=== PATIENT | female | born 1945 | race Hispanic/Latino ===

== ENCOUNTER → 2018-10-26 | Outpatient (CLI) | payer OTHER, MEDICARE ==
[~2018-10-26] MED LIST: ADAL40KI SQ; CALC-483 PO; CHOL100018 PO; DULO60CA63 PO; ESOM40CA PO; GABA-318 PO; INSLAN SQ; INSU100I15 SQ; LOSA100T20 PO; METF-444 PO; METO50TA18 PO; PRED10TA3 PO; ROSU10TA PO
== END | disposition home or self-care (01) ==
LOC: OIH 08:32
PROVIDERS: ATTEND Internal Medicine
DX: M13.842 Other specified arthritis, left hand (principal); M13.841 Other specified arthritis, right hand; M51.37 Other intervertebral disc degeneration, lumbosacral region; M47.896 Other spondylosis, lumbar region; M20.11 Hallux valgus (acquired), right foot; M20.12 Hallux valgus (acquired), left foot; R10.2 Pelvic and perineal pain
CPT/HCPCS: 72100; 72200; 73120; 73620

== ENCOUNTER → 2019-07-26 | Outpatient (CLI) | payer OTHER, MEDICARE ==
[~2019-07-26] MED LIST changes: -DULO60CA63 PO; +DULO60CA64 PO; -GABA-318 PO; +GABA600T10 PO; -LOSA100T20 PO; +LOSA100T58 PO; -ROSU10TA PO; +ROSU10TA22 PO
== END | disposition home or self-care (01) ==
LOC: RAH 09:05
PROVIDERS: ATTEND Dermatology
DX: R76.11 Nonspecific reaction to tuberculin skin test without active tuberculosis (principal)
CPT/HCPCS: 71046

== ENCOUNTER → 2019-07-30 | Outpatient (CLI) | payer OTHER, MEDICARE | END | disposition home or self-care (01) | LOC: OIH 09:51 | PROVIDERS: ATTEND Internal Medicine | DX: M50.31 Other cervical disc degeneration, high cervical region (principal); M48.02 Spinal stenosis, cervical region; M23.92 Unspecified internal derangement of left knee | CPT/HCPCS: 72040 ==

== ENCOUNTER 2020-04-26 22:21 | Inpatient (IN) | payer OTHER, MEDICARE ==
[~2020-04-26] VITALS: Ht 160 cm; Wt 100.6 kg
[2020-04-26 23:16] LABS: BASOPHILS % (AUTO) 0.2 % (0.0-5.0); EOSINOPHILS % (AUTO) 2.8 % (0.0-8.0); HEMATOCRIT 39.7 % (36-48); LYMPHOCYTES % (AUTO) 26.1 % (21.0-51.0); MEAN CORPUSCULAR HEMOGLOBIN 28.5 pg (27.0-33.0); MEAN CORPUSCULAR HGB CONC 32.2 g/dL (32.0-36.0); MEAN CORPUSCULAR VOLUME 88.4 fL (79-99); MONOCYTES % (AUTO) 5.3 % (3.0-13.0); NEUTROPHILS % (AUTO) 65.3 % (40.0-77.0); PLATELET COUNT (AUTO) 171 K/uL (130-400); RED BLOOD CELL COUNT(AUTO) 4.49 MIL/uL (4.00-5.50); RED CELL DISTRIBUTION WIDTH 12.9 % (11.0-15.5); WHITE BLOOD COUNT (AUTO) 6.2 K/uL (4.8-10.8)
[2020-04-26 23:27] LABS: INR 0.95 (0.85-1.15); PARTIAL THROMBOPLASTIN TIME 23.7 SEC (26.3-35.5); PROTHROMBIN TIME 10.3 SEC (9.6-11.6)
[2020-04-26 23:40] LABS: APPEARANCE,URINE Turbid (CLEAR); BILIRUBIN,URINE Small (NEGATIVE); COLOR,URINE Dark Yellow (YELLOW); GLUCOSE, URINE (UA) Negative (NEGATIVE); KETONES,URINE Trace mg/dL (NEGATIVE); LEUKOCYTE ESTERASE ,URINE Trace (NEGATIVE); NITRATE,URINE Negative (NEGATIVE); OCCULT BLOOD,URINE Negative (NEGATIVE); PH,URINE 5.5 (5.0-8.0); PROTEIN,URINE POS 2+ mg/dL (NEGATIVE)
[2020-04-26] MEDS ORDERED: ACETAMINOPHEN EXTRA STRENGTH 500 MG TABLET ONE (23:41)
[2020-04-26 23:44] LABS: ALBUMIN 3.2 g/dL (3.5-5.0); BILIRUBIN,TOTAL 0.6 mg/dL (0.2-1.0); CREATININE 0.7 mg/dL (0.5-1.5); CRP QUANTITATIVE 44.8 mg/L (0.00-9.0); TOTAL PROTEIN, SERUM 8.2 g/dL (6.0-8.3)
[2020-04-26 23:46] LABS: POTASSIUM 4.2 mmol/L (3.5-5.1)
[2020-04-26 23:51] LABS: BACTERIA,URINE Many /HPF (None Seen); RBC,URINE 0-1 /HPF (0-1); WBC,URINE 0-1 /HPF (0-1)
[2020-04-26 23:55] LABS: B-TYPE NATRIURETIC PEPTIDE 198 pg/mL (0-100)
[2020-04-27] MEDS ORDERED: IOHEXOL-350 75 ML VIAL IV ONE (00:45)
[2020-04-27] MEDS ORDERED: AZITHROMYCIN 500MG+NS 250ML 250 ML IV ONE (02:28)
[2020-04-27] MEDS ORDERED: CEFTRIAXONE SODIUM 1 GM ONE (02:29)
[2020-04-27] MEDS ORDERED: ONDANSETRON HCL 4 MG/2 ML VIAL IV PRN (03:00)
[2020-04-27] MEDS ORDERED: ACETAMINOPHEN 325 MG TAB PO PRN ×2 (03:00)
[2020-04-27] MEDS ORDERED: LACTULOSE 20 GM/30 ML UDCUP PO PRN (03:00)
[2020-04-27] MEDS ORDERED: HYDRALAZINE HCL 20 MG/ML VIAL IV PRN (03:00)
[2020-04-27 04:39] LABS: BASOPHILS % (AUTO) 0.2 % (0.0-5.0); EOSINOPHILS % (AUTO) 0.2 % (0.0-8.0); HEMATOCRIT 36.6 % (36-48); LYMPHOCYTES % (AUTO) 34.4 % (21.0-51.0); MEAN CORPUSCULAR HEMOGLOBIN 29.5 pg (27.0-33.0); MEAN CORPUSCULAR HGB CONC 33.1 g/dL (32.0-36.0); MEAN CORPUSCULAR VOLUME 89.3 fL (79-99); MONOCYTES % (AUTO) 6.6 % (3.0-13.0); NEUTROPHILS % (AUTO) 58.4 % (40.0-77.0); PLATELET COUNT (AUTO) 173 K/uL (130-400); RED CELL DISTRIBUTION WIDTH 12.8 % (11.0-15.5); WHITE BLOOD COUNT (AUTO) 5.3 K/uL (4.8-10.8)
[2020-04-27 04:56] LABS: CREATININE 0.7 mg/dL (0.5-1.5); POTASSIUM 3.1 mmol/L (3.5-5.1)
[2020-04-27] MEDS ORDERED: ALBUTEROL INHALER 90MCG/INH IH ONE (05:12)
[2020-04-27] MEDS ORDERED: GLUCAGON 1MG KIT 1 MG ML IM PRN (05:45)
[2020-04-27] MEDS ORDERED: DEXTROSE 50%-WATER 50 ML DISP.SYRIN IV PRN (05:45)
[2020-04-27] MEDS: ALBUTEROL INHALER 90MCG/INH IH SCH ×5 (06:00→22:04)
[2020-04-27] MEDS: INSULIN HUMULIN R 100 UNIT/ML 3ML SQ SCH ×4 (07:30→21:54)
[2020-04-27] MEDS ORDERED: ENOXAPARIN SODIUM 40 MG/0.4 ML SYRINGE SQ ONE (07:56)
[2020-04-27] MEDS ORDERED: FAMOTIDINE 20MG TAB 20 MG TAB ONE (07:56)
[2020-04-27] MEDS: METHYLPREDNISOLONE SOD SUCC 40MG/ML 1ML IVP SCH ×2 (08:30→19:57)
[2020-04-27] MEDS: ENOXAPARIN SODIUM 40 MG/0.4 ML SYRINGE SQ SCH (09:00)
[2020-04-27] MEDS: FAMOTIDINE 20MG TAB 20 MG TAB PO SCH ×2 (09:00→19:57)
[2020-04-27] MEDS ORDERED: METHYLPREDNISOLONE SOD SUCC 40MG/ML 1ML ONE (09:50)
[2020-04-27 12:37] LABS: HEMOGLOBIN A1C 8.9 % (4.0-6.0)
[2020-04-27 17:19] VITALS: BP 136/64
[2020-04-27] MEDS ORDERED: POTASSIUM CHLORIDE 20MEQ/100ML 100 ML IV PRN (20:00)
[2020-04-27] MEDS ORDERED: LIDOCAINE HCL-MPF 1% 2ML VIAL IV PRN (20:00)
[2020-04-27] MEDS ORDERED: POTASSIUM CHLORIDE 10% ELIXIR 20 MEQ/15 ML UDCUP PO PRN (20:00)
[2020-04-27 20:20] VITALS: BP 129/52
[2020-04-27] MEDS: POTASSIUM CHLORIDE 20 MEQ ERTAB PO PRN ×2 (22:09→23:52)
[2020-04-28] VITALS (7 sets, daily range): BP systolic 140–155; BP diastolic 56–74
[2020-04-28] MEDS: ALBUTEROL INHALER 90MCG/INH IH SCH ×5 (02:04→17:57)
[2020-04-28] MEDS: AZITHROMYCIN 500MG+NS 250ML 250 ML IV SCH (02:42)
[2020-04-28] MEDS: CEFTRIAXONE SODIUM 1 GM IV SCH (02:42)
[2020-04-28] MEDS ORDERED: MONT10TA26 PO (03:29)
[2020-04-28] MEDS: INSULIN HUMULIN R 100 UNIT/ML 3ML SQ SCH ×4 (05:54→21:03)
[2020-04-28 06:56] LABS: HEMATOCRIT 37.7 % (36-48); LYMPHOCYTES % (AUTO) 27.9 % (21.0-51.0); MEAN CORPUSCULAR HEMOGLOBIN 28.5 pg (27.0-33.0); MEAN CORPUSCULAR HGB CONC 31.8 g/dL (32.0-36.0); MEAN CORPUSCULAR VOLUME 89.5 fL (79-99); MONOCYTES % (AUTO) 6.3 % (3.0-13.0); NEUTROPHILS % (AUTO) 65.6 % (40.0-77.0); PLATELET COUNT (AUTO) 219 K/uL (130-400); RED BLOOD CELL COUNT(AUTO) 4.21 MIL/uL (4.00-5.50); WHITE BLOOD COUNT (AUTO) 4.3 K/uL (4.8-10.8)
[2020-04-28 07:13] LABS: CREATININE 0.8 mg/dL (0.5-1.5); POTASSIUM 3.8 mmol/L (3.5-5.1)
[2020-04-28] MEDS: FAMOTIDINE 20MG TAB 20 MG TAB PO SCH ×2 (09:40→21:00)
[2020-04-28] MEDS: METHYLPREDNISOLONE SOD SUCC 40MG/ML 1ML IVP SCH ×2 (09:40→21:00)
[2020-04-28] MEDS: ENOXAPARIN SODIUM 40 MG/0.4 ML SYRINGE SQ SCH (09:41)
[2020-04-28 10:08] LABS: CRP QUANTITATIVE 25.7 mg/L (0.00-9.0)
--- NOTE | 2020-04-28 12:30 | NUR ---
DR ALIRIO AMEZQUITA ROUNDED ON PATIENT NO NEW ORDERS RECEIVED
--- NOTE | 2020-04-28 16:03 | NUR ---
DC Plan Patient in COVID unit and is Armenian speaking. CM called radha Bhatt (ph: [phone]). Per Tracie, patient lives with spouse and independently performs ADLs. Denies any HH or DME. States patient goes to [facility] in [place] and also has a provider but cannot recall the number of provider hours. Denies falls within the last 6 months. DCP is back home with spouse and provider services. CD Addendum: 04/28/20 at 1605 by TINO DUVAL CM Amended: Links added.
--- NOTE | 2020-04-28 19:10 | NUR ---
RECEIVED REPORT FROM BROOKS PARRISH. PT IS LAYING SUPINE WITH EYES OPEN. NO DISTRESS NOTED. NO SOB. PT ON O2 VIA NC 2L
[2020-04-28] MEDS ORDERED: REMDESIVIR (INVESTIGATIONAL) 100 MG in SODIUM CHLORIDE 0.9% 250 ML IV SCH (20:30)
[2020-04-29] MEDS: AZITHROMYCIN 500MG+NS 250ML 250 ML IV SCH (03:07)
[2020-04-29] MEDS: CEFTRIAXONE SODIUM 1 GM IV SCH (03:07)
[2020-04-29 03:28] VITALS: BP 139/66
[2020-04-29 04:45] LABS: BASOPHILS % (AUTO) 0.1 % (0.0-5.0); EOSINOPHILS % (AUTO) 1.9 % (0.0-8.0); HEMATOCRIT 37.2 % (36-48); LYMPHOCYTES % (AUTO) 15.3 % (21.0-51.0); MEAN CORPUSCULAR HEMOGLOBIN 29.4 pg (27.0-33.0); MEAN CORPUSCULAR HGB CONC 33.1 g/dL (32.0-36.0); MONOCYTES % (AUTO) 3.8 % (3.0-13.0); NEUTROPHILS % (AUTO) 78.6 % (40.0-77.0); PLATELET COUNT (AUTO) 231 K/uL (130-400); RED BLOOD CELL COUNT(AUTO) 4.18 MIL/uL (4.00-5.50); RED CELL DISTRIBUTION WIDTH 12.8 % (11.0-15.5); WHITE BLOOD COUNT (AUTO) 8.6 K/uL (4.8-10.8)
[2020-04-29 06:18] LABS: CREATININE 0.8 mg/dL (0.5-1.5); CRP QUANTITATIVE 15.9 mg/L (0.00-9.0); POTASSIUM 4.3 mmol/L (3.5-5.1)
[2020-04-29] MEDS: INSULIN HUMULIN R 100 UNIT/ML 3ML SQ SCH ×4 (06:29→21:26)
--- NOTE | 2020-04-29 06:50 | NUR ---
NEW IV STARTED ON LAC, 20G. PATENT AND INTACT.
[2020-04-29] MEDS: MORPHINE SULFATE 2 MG/ML 1ML SYG IV PRN (07:09)
[2020-04-29 08:50] VITALS: BP 143/64
[2020-04-29] MEDS: FAMOTIDINE 20MG TAB 20 MG TAB PO SCH ×3 (09:20→21:00)
[2020-04-29] MEDS: ENOXAPARIN SODIUM 40 MG/0.4 ML SYRINGE SQ SCH (10:32)
[2020-04-29] MEDS: ALBUTEROL INHALER 90MCG/INH IH SCH ×3 (10:33→18:37)
[2020-04-29] MEDS: METHYLPREDNISOLONE SOD SUCC 40MG/ML 1ML IVP SCH (10:36)
--- NOTE | 2020-04-29 12:00 | NUR ---
Possible D/c tomorrow if stable
[2020-04-29 12:38] VITALS: BP 147/72
[2020-04-29 15:33] VITALS: BP 150/64
--- NOTE | 2020-04-29 19:30 | NUR ---
REPORT RECEIVED FROM BROOKS SINGER. PT LAYING IN BED EYES OPEN ON ROOM AIR. NO DISTRESS NOTED.
[2020-04-29 19:52] VITALS: BP 152/68
[2020-04-29 23:22] VITALS: BP 152/72
[2020-04-30 03:05] VITALS: BP 184/74
[2020-04-30] MEDS: CEFTRIAXONE SODIUM 1 GM IV SCH (03:12)
--- NOTE | 2020-04-30 03:13 | NUR ---
BP BLOOD PRESSURE 184/74 APRESOLINE 10MG/0.5ML GIVEN VIA IV
[2020-04-30] MEDS: AZITHROMYCIN 500MG+NS 250ML 250 ML IV SCH (04:08)
--- NOTE | 2020-04-30 04:20 | NUR ---
BP BLOOD PRESSURE 134/64
[2020-04-30] MEDS: MORPHINE SULFATE 2 MG/ML 1ML SYG IV PRN (04:23)
--- NOTE | 2020-04-30 04:23 | NUR ---
MORPHINE GIVEN FOR GENERALIZED PAIN, PT C/O LEGS HURTING.
--- NOTE | 2020-04-30 04:30 | NUR ---
PT C/O OF PAIN ON IV SITE. NO REDNESS, NO SWELLING, NO SIGNS OF INFILTRATION. CALLED BROOKS SHEETS TO ASSESS WELL.
[2020-04-30 04:33] VITALS: BP 134/64
--- NOTE | 2020-04-30 04:40 | NUR ---
PT C/O AGAIN OF IV SITE. WILL DISCONTINUE IV AND START A NEW IV.
--- NOTE | 2020-04-30 04:55 | NUR ---
NEW IV STARTED BY BROOKS SHEETS. 22G LATERAL RAC. PT STATED WHERE SHE WANTED IV BUT IT WAS EXPLAINED TO PT IV NEEDS TO BE STARTED WHERE THERE IS VIABLE VEIN ACCESS. NEW IV IS INTACT AND PATENT, ANTIBIOTICS CONTINUED.
[2020-04-30] MEDS: INSULIN HUMULIN R 100 UNIT/ML 3ML SQ SCH ×4 (05:59→20:30)
--- NOTE | 2020-04-30 06:53 | NUR ---
REPORT GIVEN TO BROOKS PANG. PT LAYING IN BED. NO DISTRESS NOTED.
[2020-04-30] MEDS: FAMOTIDINE 20MG TAB 20 MG TAB PO SCH ×4 (06:59→20:37)
[2020-04-30] MEDS: ENOXAPARIN SODIUM 40 MG/0.4 ML SYRINGE SQ SCH (07:59)
--- NOTE | 2020-04-30 08:00 | NUR ---
ASSESSMENT PT IS AAOX3 DENIES CP DENIES SOB DENIES NV AT THIS TIME. CURRENTLY ON ROOM AIR, SITTING UPRIGHT IN BED. NO VISIBLE SIGNS OF DISTRESS NOTED. CALL LIGHT WITHIN REACH.
[2020-04-30 08:32] VITALS: BP 145/58
[2020-04-30] MEDS: METOPROLOL TARTRATE 50 MG TAB PO SCH ×2 (09:29→20:21)
[2020-04-30] MEDS: LOSARTAN 100 MG TABLET PO SCH (09:29)
[2020-04-30 10:06] LABS: CRP QUANTITATIVE 21.8 mg/L (0.00-9.0)
--- NOTE | 2020-04-30 11:28 | NUR ---
DR AMEZQUITA / CATRINA SHUTTLE VENEERING SUPERVISOR ROUNDED ORDERS RECEIVED
[2020-04-30 12:26] VITALS: BP 144/76
[2020-04-30 16:38] VITALS: BP 140/67
--- NOTE | 2020-04-30 18:00 | NUR ---
STATUS RESTING IN BED, SITTING UPRIGHT IN BED. PT EXHIBITS NO VISIBLE SIGNS OF DISTRESS, CALL LIGHT WITHIN REACH.
--- NOTE | 2020-04-30 18:15 | NUR ---
DC Plan Met with patient and informed of possible dc home tomorrow, but will need O2. Patient has no preference in company, just wants one that's in-network. Provided CM with verbal consent for [facility] and [employer] to set up O2. Unable to recall street address. CM called daughter Tracie who provided address. CM updated family on possible discharge home tomorrow. Referral faxed to [employer] at [phone] with fax confirmation received. CD Addendum: 04/30/20 at 1817 by TINO DUVAL CM Amended: Links added.
[2020-04-30] MEDS: DEXAMETHASONE 4 MG TAB PO SCH (20:19)
[2020-04-30 20:40] VITALS: BP 157/65
[2020-05-01] VITALS: BP 149/52
[2020-05-01] MEDS: AZITHROMYCIN 500MG+NS 250ML 250 ML IV SCH (03:10)
[2020-05-01] MEDS: CEFTRIAXONE SODIUM 1 GM IV SCH (03:10)
[2020-05-01 04:00] VITALS: BP 139/66
[2020-05-01] MEDS: ALBUTEROL INHALER 90MCG/INH IH SCH ×5 (06:00→21:08)
[2020-05-01] MEDS: INSULIN HUMULIN R 100 UNIT/ML 3ML SQ SCH ×4 (06:27→21:10)
[2020-05-01 06:51] LABS: LACTATE DEHYDROGENASE 244 U/L (81-234)
[2020-05-01] MEDS: FAMOTIDINE 20MG TAB 20 MG TAB PO SCH ×4 (07:02→20:17)
--- NOTE | 2020-05-01 08:00 | NUR ---
ASSESSMENT PT IS AAOX3 DENIES CP DENIES SOB WHILE AT REST. DENIES NV. CURRENTLY ON O2 VIA NC. BREATHING PATTERN IS EVEN AND UNLABORED. CALL LIGHT WITHIN REACH.
[2020-05-01] MEDS: DEXAMETHASONE 4 MG TAB PO SCH (08:03)
[2020-05-01] MEDS: ENOXAPARIN SODIUM 40 MG/0.4 ML SYRINGE SQ SCH (08:03)
[2020-05-01] MEDS: METOPROLOL TARTRATE 50 MG TAB PO SCH ×2 (08:04→20:17)
[2020-05-01] MEDS: LOSARTAN 100 MG TABLET PO SCH (08:04)
[2020-05-01 08:43] VITALS: BP 148/79
[2020-05-01] MEDS: METHYLPREDNISOLONE SOD SUCC 40MG/ML 1ML IVP SCH ×2 (09:15→15:31)
--- NOTE | 2020-05-01 12:00 | NUR ---
MD ROUNDS DR AMEZQUITA / MARGARITO ZAMAN HIDE TANNER / FAHEEM ROUNDED. ORDERS RECEIVED.
[2020-05-01 12:08] VITALS: BP 123/64
[2020-05-01 16:30] VITALS: BP 142/66
--- NOTE | 2020-05-01 16:40 | NUR ---
STATUS SITTING UPRIGHT IN CHAIR. NO COMPLAINTS. CALL LIGHT WITHIN REACH.
[2020-05-01 20:36] VITALS: BP 142/73
[2020-05-01] MEDS: INSULIN GLARGINE 100 UNITS/ML 10 ML VIAL SQ SCH (21:11)
[2020-05-02] VITALS (8 sets, daily range): BP systolic 95–159; BP diastolic 49–77
[2020-05-02] MEDS: MORPHINE SULFATE 2 MG/ML 1ML SYG IV PRN ×2 (01:15→03:14)
[2020-05-02] MEDS: METHYLPREDNISOLONE SOD SUCC 40MG/ML 1ML IVP SCH ×3 (01:15→12:33)
[2020-05-02] MEDS: CEFTRIAXONE SODIUM 1 GM IV SCH (01:25)
[2020-05-02] MEDS: ALBUTEROL INHALER 90MCG/INH IH SCH ×6 (01:25→21:23)
[2020-05-02] MEDS: AZITHROMYCIN 500MG+NS 250ML 250 ML IV SCH (01:25)
[2020-05-02] MEDS ORDERED: HYDROMORPHONE HCL 2 MG/ML VIAL ONE ×3 (02:40→04:12)
[2020-05-02] MEDS ORDERED: HYDROMORPHONE HCL 2 MG/ML VIAL IVP ONE (02:45)
[2020-05-02] MEDS ORDERED: HYDROMORPHONE HCL 2 MG/ML VIAL IVP PRN (04:00)
[2020-05-02 05:21] LABS: BASOPHILS % (AUTO) 0.1 % (0.0-5.0); HEMATOCRIT 35.2 % (36-48); LYMPHOCYTES % (AUTO) 12.1 % (21.0-51.0); MEAN CORPUSCULAR HEMOGLOBIN 28.7 pg (27.0-33.0); MEAN CORPUSCULAR HGB CONC 32.7 g/dL (32.0-36.0); MEAN CORPUSCULAR VOLUME 87.8 fL (79-99); MONOCYTES % (AUTO) 3.7 % (3.0-13.0); NEUTROPHILS % (AUTO) 82.7 % (40.0-77.0); PLATELET COUNT (AUTO) 261 K/uL (130-400); RED BLOOD CELL COUNT(AUTO) 4.01 MIL/uL (4.00-5.50); RED CELL DISTRIBUTION WIDTH 12.7 % (11.0-15.5); WHITE BLOOD COUNT (AUTO) 8.3 K/uL (4.8-10.8)
[2020-05-02] MEDS: INSULIN HUMULIN R 100 UNIT/ML 3ML SQ SCH ×4 (05:55→21:30)
[2020-05-02 05:56] LABS: CREATININE 0.8 mg/dL (0.5-1.5); POTASSIUM 3.5 mmol/L (3.5-5.1)
[2020-05-02] MEDS: FAMOTIDINE 20MG TAB 20 MG TAB PO SCH ×4 (08:18→21:27)
[2020-05-02] MEDS: METOPROLOL TARTRATE 50 MG TAB PO SCH ×2 (09:36→21:26)
[2020-05-02] MEDS: LOSARTAN 100 MG TABLET PO SCH (09:36)
[2020-05-02] MEDS: ENOXAPARIN SODIUM 40 MG/0.4 ML SYRINGE SQ SCH (09:37)
--- NOTE | 2020-05-02 14:30 | NUR ---
Relayed pt's c/o abd discomfort and continued lack of taste or smell to Dr. Alex, also informed of daughter's request for abd ultrasound due to this. Dr. Alex stated these are expected symptoms of pt's dx (Covid 19) and at this time no further imaging studies are warranted; sense of taste and smell will return slowly, perhaps over weeks.
--- NOTE | 2020-05-02 17:07 | NUR ---
cm note spoke to miguel ángel with [facility] [phone] and states they have delivered the oxygen portable and concentrator to pt's home, but they are still pending approval. pt can be dc over the weekend. states will need updated o2 sat levels prior to dc. updated nargis primary nurse.
[2020-05-02] MEDS: INSULIN GLARGINE 100 UNITS/ML 10 ML VIAL SQ SCH (21:30)
[2020-05-03] MEDS: CEFTRIAXONE SODIUM 1 GM IV SCH (02:51)
[2020-05-03] MEDS: AZITHROMYCIN 500MG+NS 250ML 250 ML IV SCH (02:51)
[2020-05-03] MEDS: ALBUTEROL INHALER 90MCG/INH IH SCH ×3 (02:53→11:21)
[2020-05-03 03:51] VITALS: BP 134/73
[2020-05-03 05:38] LABS: CRP QUANTITATIVE 28.8 mg/L (0.00-9.0)
[2020-05-03] MEDS: INSULIN HUMULIN R 100 UNIT/ML 3ML SQ SCH ×2 (06:40→12:26)
--- NOTE | 2020-05-03 06:49 | NUR ---
pt glucose is 61, she is stable no complains of being in any distress. Offered a glass of orange juice, re checked is 75. will monitor
--- NOTE | 2020-05-03 08:00 | NUR ---
AM ASSESSMENT PT LAYING IN BED, HOB ELEVATED 30 DEGREES, RESTING. A/O X 3. SOB ON EXERTION. NO DISTRESS NOTED. O2 NC @ 2L W/O2 EXTENSION. DENIES CHEST PAIN OR DISCOMFORT. DENIES PALPITATIONS. TELE: SB/SR. DENIES N/V AND/OR DIARRHEA. UP W/ASSISTANCE. INSTRUCTED TO CALL FOR ASSISTANCE. CALL DOREEN W/IN REACH.
[2020-05-03] MEDS: FAMOTIDINE 20MG TAB 20 MG TAB PO SCH ×2 (08:17→08:25)
[2020-05-03] MEDS: LOSARTAN 100 MG TABLET PO SCH (08:18)
[2020-05-03] MEDS: METOPROLOL TARTRATE 50 MG TAB PO SCH (08:18)
[2020-05-03] MEDS: ENOXAPARIN SODIUM 40 MG/0.4 ML SYRINGE SQ SCH (08:19)
[2020-05-03 08:25] VITALS: BP 127/58
[2020-05-03] MEDS ORDERED: DEXAMETHASONE 4 MG TAB PO SCH (09:00)
[2020-05-03 10:56] VITALS: BP 130/87
[2020-05-03] MEDS ORDERED: DEXA6TAB7 PO (15:33)
--- NOTE | 2020-05-03 15:55 | NUR ---
DISCHARGE VERBAL& WRITTEN DISCHARGE INSTRUCTIONS REVIEWED & GIVEN TO PT IN HEBREW. QUESTIONS ENCOURAGED & CLARIFIED. PROPER CARE & MGT OF COVID 19 (ISOLATION) REVIEWED. REINFORCED COVID 19 ISOLATION PRECAUTIONS. COVID FORM SIGNED BY PT. NEW PRESCRIBED MEDICATIONS REVIEWED. PRESCRIPTION GIVEN TO PT. TELE RICHY REMOVED. IV DC'D @ THIS TIME. CALL TO BE PLACED TO DAUGHTER RYLEE TO PICK PT FROM HOSPITAL. PT'S PERSONAL BELONGINGS GATHERED.
[2020-05-03 16:00] VITALS: BP 138/63
--- NOTE | 2020-05-03 16:34 | NUR ---
CM note faxed to [facility] updated o2 sats and requested by [facility]. per RT did not meet criteria for o2.
--- NOTE | 2020-05-03 17:27 | NUR ---
CM NOTE call made to daughter hood estes, , and unable to connect after numerous call, per Hood primary nurse states she has made daughter aware that pt no longer qualifies for home o2, due to Respiratory testing at hospital and oxygen company will probably go brain picker the o2 that was delivered to her already. and states the daughter verbalizes understanding.
--- NOTE | 2020-05-03 17:30 | NUR ---
DISCHARGE DAUGHTER, RYLEE, HERE TO TAKE PT HOME. PT TAKEN TO PRIVATE VEHICLE VIA WC BY Sung CARIAS RN. NO DISTRESS NOTED.
== END 2020-05-03 17:30 | disposition home or self-care (01) | DRG 177 ==
LOC: EDH 22:21 → EDHIP 04-27 02:49 → 2AH 04-27 17:00
PROVIDERS: ADMIT Hospitalist; ATTEND Hospitalist
DX: U07.1 COVID-19 (principal); J96.01 Acute respiratory failure with hypoxia; J12.89 Other viral pneumonia; N39.0 Urinary tract infection, site not specified; K21.9 Gastro-esophageal reflux disease without esophagitis; M79.7 Fibromyalgia; N18.3 Chronic kidney disease, stage 3 (moderate); I12.9 Hypertensive chronic kidney disease with stage 1 through stage 4 chronic kidney disease, or unspecified chronic kidney disease; E11.42 Type 2 diabetes mellitus with diabetic polyneuropathy; E11.22 Type 2 diabetes mellitus with diabetic chronic kidney disease; E78.5 Hyperlipidemia, unspecified; M19.90 Unspecified osteoarthritis, unspecified site; Z96.651 Presence of right artificial knee joint; Z88.0 Allergy status to penicillin; Z91.040 Latex allergy status; Z82.3 Family history of stroke; Z83.3 Family history of diabetes mellitus; Z82.0 Family history of epilepsy and other diseases of the nervous system; Z82.5 Family history of asthma and other chronic lower respiratory diseases; Z82.49 Family history of ischemic heart disease and other diseases of the circulatory system
CPT/HCPCS: 36415; 71045; 71275; 80048; 80053; 81001; 82550; 82728; 82948; 83036; 83605; 83615; 83880; 84145; 84484; 85025; 85378; 85610; 85730; 86140; 87040; 87077; 87088; 87186; 87486; 87581; 87633; 87635; 87798; 87804; 93005; 94760; G0378; J0360; J0456; J0696; J1170; J1650; J1815; J2405; J2920; J8540; Q9967

== ENCOUNTER 2021-05-08 09:26 | Emergency (ER) | payer OTHER, MEDICARE ==
[~2021-05-08] VITALS: Ht 160 cm; Wt 81.6 kg
[~2021-05-08 09:26] MED LIST changes: +DEXA6TAB7 PO; -GABA600T10 PO; +MONT10TA32 PO; -PRED10TA3 PO
[2021-05-08 09:43] VITALS: BP 125/50
[2021-05-08 09:45] LABS: BASOPHILS % (AUTO) 0.5 % (0.0-5.0); EOSINOPHILS % (AUTO) 1.9 % (0.0-8.0); HEMATOCRIT 39.9 % (36-48); LYMPHOCYTES % (AUTO) 31.6 % (21.0-51.0); MEAN CORPUSCULAR HEMOGLOBIN 29.9 pg (27.0-33.0); MEAN CORPUSCULAR HGB CONC 32.1 g/dL (32.0-36.0); MEAN CORPUSCULAR VOLUME 93.2 fL (79-99); MONOCYTES % (AUTO) 6.6 % (3.0-13.0); NEUTROPHILS % (AUTO) 58.8 % (40.0-77.0); PLATELET COUNT (AUTO) 266 K/uL (130-400); RED BLOOD CELL COUNT(AUTO) 4.28 MIL/uL (4.00-5.50); RED CELL DISTRIBUTION WIDTH 13.3 % (11.0-15.5); WHITE BLOOD COUNT (AUTO) 9.6 K/uL (4.8-10.8)
[2021-05-08 09:53] LABS: CREATININE 0.8 mg/dL (0.5-1.5)
[2021-05-08 09:58] LABS: ALBUMIN 3.5 g/dL (3.5-5.0); BILIRUBIN,TOTAL 0.4 mg/dL (0.2-1.0); TOTAL PROTEIN, SERUM 7.8 g/dL (6.0-8.3)
[2021-05-08] MEDS: CYCLOBENZAPRINE HCL 10 MG TABLET PO SCH ×2 (11:13→11:19)
[2021-05-08] MEDS: LIDOCAINE 5% TOPICAL PATCH TP SCH ×2 (11:13→11:19)
[2021-05-08] MEDS: OXYCODONE/ACETAMIN 5/325MG TAB PO SCH ×2 (11:13→11:19)
[2021-05-08 11:31] LABS: APPEARANCE,URINE Clear (CLEAR); BILIRUBIN,URINE Negative (NEGATIVE); COLOR,URINE Yellow (YELLOW); GLUCOSE, URINE (UA) Negative (NEGATIVE); KETONES,URINE Negative (NEGATIVE); LEUKOCYTE ESTERASE ,URINE Trace (NEGATIVE); NITRATE,URINE Negative (NEGATIVE); OCCULT BLOOD,URINE Negative (NEGATIVE); PROTEIN,URINE Negative (NEGATIVE); UROBILINOGEN,URINE 0.2 mg/dL (0.2-1.0)
[2021-05-08 11:52] LABS: BACTERIA,URINE Rare /HPF (None Seen); RBC,URINE None Seen /HPF (0-1); WBC,URINE 0-1 /HPF (0-1)
[2021-05-08] MEDS ORDERED: CYCL10TA7 PO (14:04)
[2021-05-08] MEDS ORDERED: ACET1TAB25 PO (14:04)
[2021-05-08 15:11] VITALS: BP 146/67
== END 2021-05-08 15:13 | disposition home or self-care (01) ==
LOC: EDH 09:26
DX: M54.16 Radiculopathy, lumbar region (principal); M53.3 Sacrococcygeal disorders, not elsewhere classified; M25.552 Pain in left hip; R10.9 Unspecified abdominal pain; I10 Essential (primary) hypertension; F32.9 Major depressive disorder, single episode, unspecified; M19.90 Unspecified osteoarthritis, unspecified site; E11.9 Type 2 diabetes mellitus without complications; Z79.4 Long term (current) use of insulin; Z88.0 Allergy status to penicillin; Z91.040 Latex allergy status
CPT/HCPCS: 36415; 72131; 72192; 80053; 81001; 83690; 85025; 93005

== ENCOUNTER 2021-05-10 19:31 | Emergency (ER) | payer OTHER, MEDICARE ==
[~2021-05-10] VITALS: Ht 152.4 cm; Wt 81.6 kg
[~2021-05-10 19:31] MED LIST changes: +ACET1TAB25 PO; +CYCL10TA7 PO
[2021-05-10 20:13] VITALS: BP 146/74
[2021-05-10] MEDS ORDERED: SOLU-MEDROL 125MG VIAL IVP ONE (21:30)
[2021-05-10] MEDS ORDERED: HYDROCODONE/ACETAMINOPHEN 5/325 MG TAB PO ONE (21:30)
[2021-05-10] MEDS ORDERED: METH4TAB3 PO (22:41)
== END 2021-05-10 23:18 | disposition home or self-care (01) ==
LOC: EDH 19:31
DX: M25.552 Pain in left hip (principal); M79.10 Myalgia, unspecified site; M54.5 Low back pain; E78.00 Pure hypercholesterolemia, unspecified; I10 Essential (primary) hypertension; F32.9 Major depressive disorder, single episode, unspecified; Z88.0 Allergy status to penicillin; Z79.52 Long term (current) use of systemic steroids; Z91.040 Latex allergy status; Z79.899 Other long term (current) drug therapy
CPT/HCPCS: 72192

== ENCOUNTER → 2022-02-10 | Outpatient (CLI) | payer OTHER, MEDICARE ==
[~2022-02-10] MED LIST changes: +ACET-2079 PO; -ACET1TAB25 PO; +CYCL-309 PO; -CYCL10TA7 PO; +METH4TAB3 PO; +MONT-39 PO; -MONT10TA32 PO
== END | disposition home or self-care (01) ==
LOC: RAH 10:05
PROVIDERS: ATTEND Internal Medicine
DX: I12.9 Hypertensive chronic kidney disease with stage 1 through stage 4 chronic kidney disease, or unspecified chronic kidney disease (principal); N18.9 Chronic kidney disease, unspecified; M47.815 Spondylosis without myelopathy or radiculopathy, thoracolumbar region; Z90.49 Acquired absence of other specified parts of digestive tract
CPT/HCPCS: 71046

== ENCOUNTER 2022-03-11 08:03 | Observation (INO) | payer OTHER, MEDICARE ==
[2022-03-09 10:56] LABS: BASOPHILS % (AUTO) 0.4 % (0.0-5.0); EOSINOPHILS % (AUTO) 1.7 % (0.0-8.0); HEMATOCRIT 40.4 % (36-48); LYMPHOCYTES % (AUTO) 35.8 % (21.0-51.0); MEAN CORPUSCULAR HEMOGLOBIN 29.1 pg (27.0-33.0); MEAN CORPUSCULAR HGB CONC 32.2 g/dL (32.0-36.0); MEAN CORPUSCULAR VOLUME 90.6 fL (79-99); MONOCYTES % (AUTO) 6.3 % (3.0-13.0); NEUTROPHILS % (AUTO) 55.6 % (40.0-77.0); PLATELET COUNT (AUTO) 301 K/uL (130-400); RED BLOOD CELL COUNT(AUTO) 4.46 MIL/uL (4.00-5.50); RED CELL DISTRIBUTION WIDTH 13.1 % (11.0-15.5); WHITE BLOOD COUNT (AUTO) 9.7 K/uL (4.8-10.8)
[2022-03-09 10:57] LABS: APPEARANCE,URINE Clear (CLEAR); BILIRUBIN,URINE Negative (NEGATIVE); COLOR,URINE Yellow (YELLOW); GLUCOSE, URINE (UA) Negative (NEGATIVE); KETONES,URINE Negative (NEGATIVE); LEUKOCYTE ESTERASE ,URINE Trace (NEGATIVE); NITRATE,URINE Negative (NEGATIVE); OCCULT BLOOD,URINE Negative (NEGATIVE); PH,URINE 6.5 (5.0-8.0); PROTEIN,URINE Negative (NEGATIVE); UROBILINOGEN,URINE 0.2 mg/dL (0.2-1.0)
[2022-03-09 11:18] LABS: BACTERIA,URINE Rare /HPF (None Seen); RBC,URINE 0-1 /HPF (0-1); SQUAMOUS EPITHELIAL CELL,UR Few /HPF (0-2)
[2022-03-09 11:19] LABS: CREATININE 0.7 mg/dL (0.5-1.5); POTASSIUM 4.1 mmol/L (3.5-5.1)
[2022-03-09 11:49] LABS: INR 1.07 (0.85-1.15); PROTHROMBIN TIME 11.6 SEC (9.6-11.6)
[~2022-03-11] VITALS: Ht 160 cm; Wt 78.0 kg
[2022-03-11] VITALS (28 sets, daily range): BP systolic 111–162; BP diastolic 56–79
[~2022-03-11 08:03] MED LIST changes: -ACET-2079 PO; -ADAL40KI SQ; +ALBU2.5V2 IH; +ALBU8.5H8 IH; +ASPI-1443 PO; +CALC-1125 PO; -CALC-483 PO; -CHOL100018 PO; -CYCL-309 PO; -DEXA6TAB7 PO; +DULO60CA45 PO; -DULO60CA64 PO; +HYDR-4153 PO; -INSU100I15 SQ; -LOSA100T58 PO; -METF-444 PO; -METH4TAB3 PO; -ROSU10TA22 PO; +cetrizine PO; +folic acid PO; +vitamin b12 PO; +vitamin d3 PO
[2022-03-11] MEDS ORDERED: CEFAZOLIN SODIUM 1 GM VIAL ONE (09:06)
[2022-03-11] MEDS ORDERED: LACTATED RINGERS 1000ML 0 ML IV ONE (09:06)
[2022-03-11] MEDS ORDERED: 0.9%NACL 1000ML 1,000 ML IV ONE (09:11)
[2022-03-11] MEDS ORDERED: PROPOFOL 10 MG/ML 20ML VIAL IV ONE (09:25)
[2022-03-11] MEDS ORDERED: ROCURONIUM 10MG/1ML SYR 10 MG/ML ML ONE (09:25)
[2022-03-11] MEDS ORDERED: ONDANSETRON 4MG INJ ONE (09:25)
[2022-03-11] MEDS ORDERED: LIDOCAINE PF 100MG/5ML (2%) SYRINGE 5ML ONE (09:25)
[2022-03-11] MEDS ORDERED: MIDAZOLAM HCL 1 MG/ML 2ML VIAL ONE (09:26)
[2022-03-11] MEDS ORDERED: FENTANYL CITRATE PF 50 MCG/1 ML 2ML VIAL ONE (09:26)
[2022-03-11] MEDS ORDERED: LIDOCAINE HCL-MPF 1% 5ML AMP IJ ONE (09:27)
[2022-03-11] MEDS ORDERED: ACETAMINOPHEN 500 MG TABLET ONE (09:31)
[2022-03-11] MEDS ORDERED: KETOROLAC 15MG/ML VIAL (15MG/ML) ONE (09:32)
[2022-03-11] MEDS ORDERED: CELECOXIB 200 MG CAP ONE (09:32)
[2022-03-11] MEDS ORDERED: CLINDAMYCIN IVPB 900MG/50ML 50 ML IV ONE (09:59)
[2022-03-11] MEDS ORDERED: ROPIVACAINE 0.5% 5MG/ML 30ML IJ ONE (10:07)
[2022-03-11] MEDS ORDERED: DEXAMETHASONE SOD PHOSPHATE 10MG/ML 1ML VIAL ONE (10:18)
[2022-03-11] MEDS ORDERED: CLINDAMYCIN 900MG/6ML INJ IVPB ONE (10:20)
[2022-03-11] MEDS ORDERED: TRANEXAMIC ACID 1000MG/10ML IV ONE (10:37)
[2022-03-11] MEDS ORDERED: VANCOMYCIN 1G VIAL ONE (10:40)
[2022-03-11] MEDS ORDERED: TRANEXAMIC ACID 1000MG/10ML ONE ×2 (10:40→12:30)
[2022-03-11] MEDS ORDERED: VANCOMYCIN 1G VIAL IRRIG ONE (11:02)
[2022-03-11] MEDS ORDERED: MEPERIDINE-PF 25 MG/ML SYG ONE ×2 (12:19→13:34)
[2022-03-11] MEDS ORDERED: GLYCOPYRROLATE 1 MG/5 ML SYRINGE ONE (12:21)
[2022-03-11] MEDS ORDERED: NEOSTIGMINE 5MG/5ML SYR IV ONE (12:21)
[2022-03-11] MEDS ORDERED: DiphenhydrAMINE HCL 50 MG/ML VIAL IVP PRN (12:30)
[2022-03-11] MEDS ORDERED: FERROUS FUMARATE 324 MG TABLET PO PRN (12:30)
[2022-03-11] MEDS ORDERED: ONDANSETRON 4MG INJ IVP PRN (12:30)
[2022-03-11] MEDS ORDERED: LIDOCAINE HCL-MPF 1% 2ML VIAL IV PRN (12:30)
[2022-03-11] MEDS ORDERED: CALCIUM CARB 500MG PO PRN (12:30)
[2022-03-11] MEDS: ACETAMINOPHEN 500 MG TABLET PO SCH ×2 (12:30→22:04)
[2022-03-11] MEDS ORDERED: POTASSIUM CHLORIDE 20MEQ/100ML 100 ML IV PRN (12:30)
[2022-03-11] MEDS ORDERED: TRAMADOL HCL 50 MG TABLET PO PRN (12:30)
[2022-03-11] MEDS: 0.9%NACL 1000ML 1,000 ML IV SCH (12:30)
[2022-03-11] MEDS ORDERED: OXYCODONE HCL 5 MG TAB PO PRN (12:30)
[2022-03-11] MEDS ORDERED: POTASSIUM CHLORIDE 10% ELIXIR 20 MEQ/15 ML UDCUP PO PRN (12:30)
[2022-03-11] MEDS ORDERED: LIDOCAINE 2%-EPI 1:200,000 20 ML VIAL IJ ONE (12:59)
[2022-03-11] MEDS: KETOROLAC 15MG/ML VIAL (15MG/ML) IV PRN (15:47)
[2022-03-11] MEDS: OXYCODONE HCL 5 MG TAB PO PRN (15:48)
[2022-03-11] MEDS: INSULIN HUMULIN R 100 UNIT/ML 3ML SQ SCH ×2 (16:30→22:05)
[2022-03-11] MEDS: CLINDAMYCIN IVPB 900MG/50ML 50 ML IV SCH (18:48)
[2022-03-11] MEDS ORDERED: ALBUTEROL 0.083% 2.5 MG/3 ML INH IH SCH (20:00)
[2022-03-11] MEDS ORDERED: ALBUTEROL INHALER 90MCG/INH IH PRN (20:30)
[2022-03-11] MEDS ORDERED: NON-FORMULARY MEDICATION 1 EACH (Calcium Carbonate (Calcium) 600 MG) PO SCH (21:00)
[2022-03-11] MEDS ORDERED: DULOXETINE HCL 60 MG PO SCH (21:00)
[2022-03-11] MEDS: ASPIRIN 81 MG EC TAB PO SCH (21:46)
[2022-03-11] MEDS: CALCIUM CARB 500MG PO SCH (21:46)
[2022-03-11] MEDS: CELECOXIB 200 MG CAP PO SCH (21:46)
[2022-03-11] MEDS: DULOXETINE HCL 30 MG CAP PO SCH (21:46)
[2022-03-11] MEDS: METOPROLOL TARTRATE 50 MG TAB PO SCH (21:47)
[2022-03-12 00:18] VITALS: BP 139/62
[2022-03-12] MEDS: CLINDAMYCIN IVPB 900MG/50ML 50 ML IV SCH (01:34)
[2022-03-12 03:57] LABS: HEMATOCRIT 34.7 % (36-48); MEAN CORPUSCULAR HGB CONC 31.7 g/dL (32.0-36.0); MEAN CORPUSCULAR VOLUME 88.3 fL (79-99); RED BLOOD CELL COUNT(AUTO) 3.93 MIL/uL (4.00-5.50); RED CELL DISTRIBUTION WIDTH 13.2 % (11.0-15.5); WHITE BLOOD COUNT (AUTO) 12.4 K/uL (4.8-10.8)
[2022-03-12 04:07] LABS: CREATININE 0.8 mg/dL (0.5-1.5); POTASSIUM 3.3 mmol/L (3.5-5.1)
[2022-03-12 05:14] VITALS: BP 143/66
[2022-03-12] MEDS: OXYCODONE HCL 5 MG TAB PO PRN ×3 (06:49→18:01)
[2022-03-12] MEDS: KETOROLAC 15MG/ML VIAL (15MG/ML) IV PRN ×2 (06:49→13:14)
[2022-03-12] MEDS: 0.9%NACL 1000ML 1,000 ML IV SCH ×2 (06:50→08:30)
[2022-03-12] MEDS: INSULIN HUMULIN R 100 UNIT/ML 3ML SQ SCH ×4 (07:30→21:00)
[2022-03-12 08:00] VITALS: BP 138/55
[2022-03-12] MEDS: INSULIN GLARGINE 100 UNITS/ML 10 ML VIAL SQ SCH (08:55)
[2022-03-12] MEDS: CETIRIZINE HCL 5 MG TABLET PO SCH (08:59)
[2022-03-12] MEDS: METOPROLOL TARTRATE 50 MG TAB PO SCH ×2 (08:59→21:37)
[2022-03-12] MEDS: MONTELUKAST SODIUM 10 MG TAB PO SCH (08:59)
[2022-03-12] MEDS: CALCIUM CARB 500MG PO SCH ×2 (08:59→21:36)
[2022-03-12] MEDS: TAMSULOSIN HCL 0.4 MG CAP.ER.24H PO SCH (08:59)
[2022-03-12] MEDS: FOLIC ACID 1 MG TABLET PO SCH (08:59)
[2022-03-12] MEDS: ASPIRIN 81 MG EC TAB PO SCH ×2 (08:59→21:36)
[2022-03-12] MEDS: POLYETHYLENE GLYCOL 3350 17 GM POWD.PACK PO SCH (08:59)
[2022-03-12] MEDS: PANTOPRAZOLE 40 MG TAB DR PO SCH (08:59)
[2022-03-12] MEDS: CELECOXIB 200 MG CAP PO SCH ×2 (08:59→21:37)
[2022-03-12] MEDS ORDERED: CETRIZINE 10 MG PO SCH (09:00)
[2022-03-12] MEDS ORDERED: FOLIC ACID PO SCH (09:00)
[2022-03-12] MEDS: KCL 20 MEQ ERTAB PO PRN ×3 (09:30→16:55)
[2022-03-12] MEDS: ACETAMINOPHEN 500 MG TABLET PO SCH ×2 (11:53→21:40)
[2022-03-12 12:00] VITALS: BP 150/69
[2022-03-12 16:00] VITALS: BP 130/65
[2022-03-12 19:00] VITALS: BP 124/59
[2022-03-12] MEDS: DULOXETINE HCL 30 MG CAP PO SCH (21:36)
[2022-03-13 00:10] VITALS: BP 150/67
[2022-03-13 04:00] VITALS: BP 118/57
[2022-03-13] MEDS: OXYCODONE HCL 5 MG TAB PO PRN ×2 (06:30→21:21)
[2022-03-13] MEDS: INSULIN HUMULIN R 100 UNIT/ML 3ML SQ SCH ×4 (06:31→21:00)
[2022-03-13] MEDS: ACETAMINOPHEN 500 MG TABLET PO SCH ×3 (06:31→21:15)
[2022-03-13 08:00] VITALS: BP 129/57
[2022-03-13] MEDS: INSULIN GLARGINE 100 UNITS/ML 10 ML VIAL SQ SCH (09:00)
[2022-03-13] MEDS: ASPIRIN 81 MG EC TAB PO SCH ×2 (09:23→21:11)
[2022-03-13] MEDS: TAMSULOSIN HCL 0.4 MG CAP.ER.24H PO SCH (09:24)
[2022-03-13] MEDS: CETIRIZINE HCL 5 MG TABLET PO SCH (09:24)
[2022-03-13] MEDS: METOPROLOL TARTRATE 50 MG TAB PO SCH ×2 (09:24→21:12)
[2022-03-13] MEDS: POLYETHYLENE GLYCOL 3350 17 GM POWD.PACK PO SCH (09:24)
[2022-03-13] MEDS: MONTELUKAST SODIUM 10 MG TAB PO SCH (09:24)
[2022-03-13] MEDS: CALCIUM CARB 500MG PO SCH ×2 (09:24→21:11)
[2022-03-13] MEDS: PANTOPRAZOLE 40 MG TAB DR PO SCH (09:24)
[2022-03-13] MEDS: CELECOXIB 200 MG CAP PO SCH ×2 (09:24→21:11)
[2022-03-13] MEDS: FOLIC ACID 1 MG TABLET PO SCH (09:24)
[2022-03-13 12:00] VITALS: BP 132/72
[2022-03-13] MEDS: BENZOCAINE/MENTH/CETYLPYRD CL 1 EACH LOZENGE MM PRN ×2 (12:49→21:18)
[2022-03-13 16:00] VITALS: BP 136/66
[2022-03-13 19:00] VITALS: BP 121/53
[2022-03-13] MEDS: DULOXETINE HCL 30 MG CAP PO SCH (21:11)
[2022-03-14] VITALS: BP 146/65
[2022-03-14 04:00] VITALS: BP 111/50
[2022-03-14] MEDS: ACETAMINOPHEN 500 MG TABLET PO SCH ×2 (04:32→13:55)
[2022-03-14] MEDS: KETOROLAC 15MG/ML VIAL (15MG/ML) IV PRN (04:34)
[2022-03-14] MEDS: INSULIN HUMULIN R 100 UNIT/ML 3ML SQ SCH ×3 (05:57→16:30)
[2022-03-14 06:54] VITALS: BP 124/57
[2022-03-14] MEDS: TAMSULOSIN HCL 0.4 MG CAP.ER.24H PO SCH (09:00)
[2022-03-14] MEDS: INSULIN GLARGINE 100 UNITS/ML 10 ML VIAL SQ SCH (09:00)
[2022-03-14] MEDS: CALCIUM CARB 500MG PO SCH (09:02)
[2022-03-14] MEDS: CELECOXIB 200 MG CAP PO SCH (09:02)
[2022-03-14] MEDS: CETIRIZINE HCL 5 MG TABLET PO SCH (09:02)
[2022-03-14] MEDS: MONTELUKAST SODIUM 10 MG TAB PO SCH (09:02)
[2022-03-14] MEDS: PANTOPRAZOLE 40 MG TAB DR PO SCH (09:02)
[2022-03-14] MEDS: ASPIRIN 81 MG EC TAB PO SCH (09:02)
[2022-03-14] MEDS: POLYETHYLENE GLYCOL 3350 17 GM POWD.PACK PO SCH (09:03)
[2022-03-14] MEDS: FOLIC ACID 1 MG TABLET PO SCH (09:03)
[2022-03-14] MEDS: METOPROLOL TARTRATE 50 MG TAB PO SCH (09:03)
[2022-03-14] MEDS: BENZOCAINE/MENTH/CETYLPYRD CL 1 EACH LOZENGE MM PRN (09:08)
[2022-03-14 12:00] VITALS: BP 132/66
[2022-03-14] MEDS ORDERED: BISACODYL 10 MG SUPP.RECT RC PRN (12:30)
[2022-03-14] MEDS ORDERED: AEC81 PO (12:57)
[2022-03-14] MEDS ORDERED: HYDR-4060 PO (12:57)
== END 2022-03-14 18:00 ==
LOC: DAH 08:03 → DAHIP 08:04 → DAH 08:06 → 4AH 14:34
PROVIDERS: ADMIT Orthopaedic Surgery; ATTEND Orthopaedic Surgery
DX: M17.12 Unilateral primary osteoarthritis, left knee (principal); Z20.822 Contact with and (suspected) exposure to COVID-19; D62 Acute posthemorrhagic anemia; I10 Essential (primary) hypertension; E11.9 Type 2 diabetes mellitus without complications; M06.9 Rheumatoid arthritis, unspecified; Z90.710 Acquired absence of both cervix and uterus; Z79.899 Other long term (current) drug therapy
CPT/HCPCS: 27447; 36415 ×2; 64447; 76942; 80048 ×2; 81001; 82948 ×14; 85025; 85027; 85610; 87088; 87635; 87641; 88305; 88311; 96365; 96366; 96372 ×2; 96375; 96376 ×2; 97039 ×5; 97116 ×5; 97161; 97530 ×2; A4213; A4215; A4216; A4221; A4222; A4223 ×2; A4600; A4649 ×5; A4663; A9272; C1776; C9803; G0378 ×74; J1100; J1815; J1885 ×5; J2001; J2175 ×2; J2250; J2405 ×2; J2704; J2710; J2795; J3010; J3370 ×2; J3490 ×10; J7030; J7120; J0690

== ENCOUNTER → 2022-04-22 | Outpatient (CLI) | payer OTHER, MEDICARE ==
[~2022-04-22] MED LIST changes: +AEC81 PO; -ASPI-1443 PO; +HYDR-4060 PO
== END | disposition home or self-care (01) ==
LOC: RAH 11:34
PROVIDERS: ATTEND Internal Medicine
DX: M25.562 Pain in left knee (principal)
CPT/HCPCS: 73562

== ENCOUNTER 2022-10-16 10:19 | Emergency (ER) | payer OTHER, MEDICARE ==
[~2022-10-16] VITALS: Ht 160 cm; Wt 80.3 kg
[2022-10-16] MEDS ORDERED: KETOROLAC 60 MG VIAL (30MG/ML) IM ONE (11:30)
[2022-10-16 11:32] LABS: BASOPHILS % (AUTO) 0.3 % (0.0-5.0); EOSINOPHILS % (AUTO) 1.1 % (0.0-8.0); MEAN CORPUSCULAR HEMOGLOBIN 27.9 pg (27.0-33.0); MEAN CORPUSCULAR VOLUME 84.6 fL (79-99); MONOCYTES % (AUTO) 8.7 % (3.0-13.0); PLATELET COUNT (AUTO) 319 K/uL (130-400); RED CELL DISTRIBUTION WIDTH 14.3 % (11.0-15.5); WHITE BLOOD COUNT (AUTO) 10.5 K/uL (4.8-10.8)
[2022-10-16 11:56] LABS: ALBUMIN 2.5 g/dL (3.5-5.0); CREATININE 0.7 mg/dL (0.5-1.5); TOTAL PROTEIN, SERUM 7.1 g/dL (6.0-8.3)
[2022-10-16 13:52] LABS: APPEARANCE,URINE CLEAR (CLEAR); BILIRUBIN,URINE NEGATIVE (NEGATIVE); COLOR,URINE YELLOW (YELLOW); GLUCOSE, URINE (UA) NEGATIVE (NEGATIVE); KETONES,URINE NEGATIVE (NEGATIVE); LEUKOCYTE ESTERASE ,URINE NEGATIVE Leu/uL (NEGATIVE); NITRATE,URINE NEGATIVE (NEGATIVE); OCCULT BLOOD,URINE TRACE-INTACT (NEGATIVE); PH,URINE 6.5 (5.0-8.0); PROTEIN,URINE TRACE mg/dL (NEGATIVE); UROBILINOGEN,URINE 0.2 mg/dL (0.2-1.0)
[2022-10-16 14:00] LABS: BACTERIA,URINE Rare /HPF (None Seen); SQUAMOUS EPITHELIAL CELL,UR Few /HPF (0-2)
[2022-10-16 14:18] VITALS: BP 146/51
[2022-10-16] MEDS ORDERED: ACET-66 PO (14:45)
== END 2022-10-16 14:50 | disposition home or self-care (01) ==
LOC: EDH 10:19
DX: M25.461 Effusion, right knee (principal); E78.00 Pure hypercholesterolemia, unspecified; I11.9 Hypertensive heart disease without heart failure; E11.9 Type 2 diabetes mellitus without complications; Z96.653 Presence of artificial knee joint, bilateral; Z79.899 Other long term (current) drug therapy; Z79.82 Long term (current) use of aspirin; Z88.0 Allergy status to penicillin
CPT/HCPCS: 99284; 80053; 85025; 81001; 36415; 73562; 96372; J1885

== ENCOUNTER → 2024-07-05 | Outpatient (CLI) | payer OTHER, MEDICARE ==
[~2024-07-05] MED LIST changes: +ACET-66 PO; -HYDR-4153 PO; +HYDR25TA67 PO
== END | disposition home or self-care (01) ==
LOC: RAH 10:08
PROVIDERS: ATTEND Internal Medicine
DX: M47.814 Spondylosis without myelopathy or radiculopathy, thoracic region (principal); M47.812 Spondylosis without myelopathy or radiculopathy, cervical region; M48.02 Spinal stenosis, cervical region; M54.6 Pain in thoracic spine; G89.21 Chronic pain due to trauma; M41.84 Other forms of scoliosis, thoracic region; G89.29 Other chronic pain; Z90.49 Acquired absence of other specified parts of digestive tract
CPT/HCPCS: 72040; 72072

== ENCOUNTER → 2024-12-04 | Outpatient (CLI) | payer OTHER, MEDICARE ==
--- NOTE | 2024-12-04 16:50 | HMCIMG ---
Exam: Right hip 2 views Reason: Pain, history of trauma. FINDINGS: There are normal-appearing bones. There are no fractures. Hip joint space appears preserved. Soft tissues appear unremarkable. IMPRESSION: 1. Normal views of the right hip.
--- NOTE | 2024-12-04 16:51 | HMCIMG ---
KNEE 3VWS RT REASON: RT KNEE PAIN TECHNIQUE: 3 views were obtained. FINDINGS: There is a partial medial joint space knee replacement. There is osteoarthritis in the lateral and patellofemoral joint spaces. There are no fractures. There is no evidence of joint effusion. IMPRESSION: No acute findings.
== END | disposition home or self-care (01) ==
LOC: RAH 15:15
PROVIDERS: ATTEND Internal Medicine
DX: M17.11 Unilateral primary osteoarthritis, right knee (principal); M25.561 Pain in right knee; M79.605 Pain in left leg
CPT/HCPCS: 73502; 73562

== ENCOUNTER → 2025-10-07 | Outpatient (CLI) | payer MEDICARE ==
--- NOTE | 2025-10-07 22:46 | HMCIMG ---
EXAM: XR LT Knee, 3 Views. CLINICAL HISTORY:Pain COMPARISON: None provided. FINDINGS: BONES: A sclerotic, relatively deformed patella is noted. Moderate periosteal reaction is seen at the lower aspect of the femur, more evident at the medial side, with heterogeneous bone appearance and mild sclerosis. This could represent sequel of previous osteomyelitis. Correlation with clinical data and previous studies is recommended. JOINTS: Total knee arthroplasty is noted. No dislocation. SOFT TISSUES: The soft tissues are unremarkable. IMPRESSION: 1. Moderate periosteal reaction at the lower femur, more evident medially, with heterogeneous bone appearance and mild sclerosis, possibly representing sequelof previous osteomyelitis. 2. Total knee arthroplasty in place. No dislocation. /Edward
--- NOTE | 2025-10-07 22:47 | HMCIMG ---
EXAM: XR RT Knee, 3 Views. CLINICAL HISTORY:PAIN COMPARISON: None provided. FINDINGS: BONES: A small bony ossicle is seen related to the posterior aspect of the lower femur. No acute fracture. JOINTS: Advanced tricompartmental osteoarthritic changes are seen with narrow joint spaces more evident at the medial compartment. Marginal osteophytes are also noted, as well as tibial spiking. Minimal knee joint effusion is noted.Unicompartmental knee arthroplasty . No dislocation. SOFT TISSUES: The soft tissues are unremarkable. IMPRESSION: 1. Unicompartmental knee arthroplasty. 2. Advanced tricompartmental osteoarthritic changes with narrow joint spaces more evident at the medial compartment, marginal osteophytes, and tibial spiking. 3. Minimal knee joint effusion. /Wolbach
== END | disposition home or self-care (01) ==
LOC: RAH 11:10
PROVIDERS: ATTEND Internal Medicine
DX: M17.11 Unilateral primary osteoarthritis, right knee (principal); M25.761 Osteophyte, right knee; M25.561 Pain in right knee; M25.562 Pain in left knee; Z96.653 Presence of artificial knee joint, bilateral
CPT/HCPCS: 73562